=== PATIENT | female | born 1960 | race Caucasian/White ===

== ENCOUNTER 2016-10-14 09:05 | Outpatient (CLI) | payer MEDICAID ==
[~2016-10-14] VITALS: Ht 165.1 cm; Wt 62.3 kg
--- NOTE | ~2016-10-14 | OP ---
PATIENT NAME: LALI LIU MEDICAL RECORD: [id number] :64 LOCATION:D.CAT ADMISSION DATE: SURGEON: LUCÍA MCALLISTER MD DATE OF OPERATION: 10/14/2016 PROCEDURES: 1. Left heart catheterization. 2. Selective coronary angiography. 3. SORIA angiography. 4. Vein graft angiography. INDICATION: Angina and coronary artery disease. PROCEDURE IN DETAIL: After informed consent was obtained and after detailed explanation of risks, benefits as well as alternative therapies, the patient elected to proceed with angiogram and angioplasty. The right femoral area was prepped and draped in normal sterile fashion. The right femoral artery was cannulated via modified Seldinger technique with placement of 6-Slovenian sheath. All catheters exchanged through this sheath. FINDINGS: The left ventriculogram was performed in standard 30-degree NAVARRO view, reveals good cardiac wall motion throughout all segments. Overall ejection fraction estimated at 60%. SELECTIVE CORONARY ANGIOGRAPHY: 1. Left main has 90% stenosis. 2. The LAD is totally occluded. 3. Left circumflex is totally occluded. 4. Right coronary is totally occluded. 5. Vein graft to the right coronary is totally occluded. 6. Vein graft to the circumflex is totally occluded. 7. SORIA to the LAD is the only vessel patent. It fills the entire left system and collaterals to the right. OVERALL IMPRESSION: Wide patency of the SORIA to the LAD only. No other vessels are patent. TRANSINT:[id number] Voice Confirmation ID: [id number] DOCUMENT ID: [id number] LUCÍA MCALLISTER MD CC: [id number] DICTATION DATE: 10/14/16 1441 ENGINEERING WRITER: 10/14/16 2256 [facility] CLI 10/14/16 [place] [id number]
--- NOTE | ~2016-10-14 | HEMODYNAMI ---
PATIENT:LALI LIU MEDICAL RECORD: [id number] : 64 LOCATION:[facility] ADMISSION DATE: 10/14/16 Generatedon:10/14/201614:46 Patient name: LALI LIU Patient #: [id number] SSN: : 1960 Date of study: 10/14/2016 Page: Of Hemodynamic Procedure Report Patient Data Patient Demographics Procedure consent was obtained First Name: LALI Gender: Female Last Name: ALEXA : 1960 Patient #: [id number] Age: 56 year(s) Race: Additional ID: [id number] Contact details Address: [address] [place] [address] COURT State: [place] City: [facility] Zip code: [address] Past Medical History Allergies Allergen Reaction Date Comments Reported Penicillins 08/28/2015 Other allergy 08/28/2015 NAPROXEN Penicillins 10/14/2016 Other allergy 10/14/2016 NAPROXEN Admission Admission Data Admission Date: 10/14/2016 Admission Time: 9:05 Admit Source: Other Lab Results Lab Result Date: 10/14/2016 Lab Result Time: 0:00 Biochemistry Name Units Result Min Max BUN mg/dl 16 --(---*)-- 7 18 Creatinine mg/dl 1.1 --(--*-)-- 0.6 1.3 CBC Name Units Result Min Max Hemoglobin g/dl 13.6 --(*---)-- 13.5 17.5 Procedure Procedure Types Cath Procedure Diagnostic Procedure LHC LHC w/Coronaries w/Grafts Procedure Description Procedure Date Procedure Date: 10/14/2016 Procedure Start Time: 14:27 Procedure End Time: 14:44 Procedure Staff Name Function Alpesh Washington MD Performing Physician Suzi Howard RT Scrub Randal Escobedo RN Nurse Ernst Olson RT Monitor Procedure Data Cath Procedure Fluoroscopy Diagnostic fluoroscopy Total fluoroscopy Time: 1.7 time: 1.7 min min Diagnostic fluoroscopy Total fluoroscopy dose: dose: 77.02 mGy 77.02 mGy Contrast Material Contrast Material Type Amount (ml) Isovue 300 58 Entry Location Entry Primary Successful Side Size Upsize Upsize Entry Closure Succes sful Closure Location (Fr) 1 (Fr) 2 (Fr) Remarks Device Remarks Femoral Right 5 Fr Vascade artery Closure System Estimated blood loss: 10 ml Diagnostic catheters Device Type Used For End Catheter Placement Cordis 5Fr Pigtail Procedure Catheter (MP) Cordis 5Fr JL 4.0 Procedure Catheter (MP) Cordis 5Fr 3DRC Catheter Procedure (MP) Procedure Medications Medication Administration Route Dosage Oxygen NC 2 l/min Heparin Flush Bag added to field 2 bags (1000units/500ml NS) 0.9% NaCl I.V. 100 ml/hr Fentanyl I.V. 50 mcg Versed I.V. 1 mg Fentanyl I.V. 50 mcg Versed I.V. 1 mg Fentanyl I.V. 50 mcg Versed I.V. 1 mg Fentanyl I.V. 50 mcg Versed I.V. 1 mg Hemodynamics Rest HGB: 13.6 (g/dl) Heart Rate: 63 (bpm) Pressure Samples Time Site Value (mmHg) Purpose Heart Use Rate(bpm) 14:30 LV 91/13,23 Snapshot 64 Snapshots Pre Cath Intra NCS Post Cath Vital Signs Time Heart Resp SPO2 NIBP (mmHg) Rhythm Pain Sedation Rate (ipm) (%) Status Level (bpm) 13:50:37 64 18 99 148/89(128) NSR 0 (11) 10(A) , No pain 13:54:49 62 16 98 134/89(106) NSR 0 (11) 10(A) , No pain 13:59:03 62 19 96 127/80(109) NSR 0 (11) 10(A) , No pain 14:03:07 55 17 95 115/76(103) NSR 0 (11) 10(A) , No pain 14:07:23 60 17 89 114/57(75) NSR 0 (11) 10(A) , No pain 14:11:37 59 17 97 99/65(84) NSR 0 (11) 10(A) , No pain 14:15:42 60 18 97 101/67(84) NSR 0 (11) 10(A) , No pain 14:19:52 60 17 98 100/57(82) NSR 0 (11) 9(A) , No pain 14:24:02 60 17 97 90/56(75) NSR 0 (11) 9(A) , No pain 14:28:06 61 18 97 97/61(78) NSR 0 (11) 9(A) , No pain 14:32:16 65 20 96 88/55(69) NSR 0 (11) 9(A) , No pain 14:36:22 71 17 96 88/54(68) NSR 0 (11) 9(A) , No pain 14:40:27 64 18 96 87/55(69) NSR 0 (11) 9(A) , No pain 14:44:31 65 16 96 87/60(71) NSR 0 (11) 9(A) , No pain Medications Time Medication Route Dose Verified Delivered Reason Notes Effec tiveness by by 14:05:53 Oxygen NC 2 Randal Randal Per l/min Gregg Escobedo RN physician RN 14:06:05 Heparin Flush added 2 Randal Randal used for Bag to bags Gregg Escobedo conduit worker (1000units/500ml field RN NS) 14:06:23 0.9% NaCl I.V. 100 Randal Randal Per ml/hr Gregg Escobedo RN physician RN 14:18:42 Fentanyl I.V. 50 Randal Randal for joseph Escobedo RN sedation RN 14:18:50 Versed I.V. 1 mg Randal Randal for Gregg Escobedo RN sedation RN 14:22:02 Fentanyl I.V. 50 Randal Randal for [facility] Gregg Escobedo RN sedation RN 14:22:46 Versed I.V. 1 mg Randal Randal for Gregg Escobedo RN sedation RN 14:29:35 Fentanyl I.V. 50 Randal Randal for [facility] Gregg Escobedo RN sedation RN 14:29:38 Versed I.V. 1 mg Randal Randal for Gregg Escobedo RN sedation RN 14:30:19 Fentanyl I.V. 50 Randal Randal for [facility] Gregg Escobedo RN sedation RN 14:30:22 Versed I.V. 1 mg Randal Randal for Gregg Escobedo RN sedation strap setter Log Time Note 13:35:06 Informed consent obtained and on chart 13:35:11 Diagnostic Cath Status : Elective 13:35:47 Admit Source: Other 13:35:52 Ernst Olson RT(R) (CV) sent for patient. Start room use. 13:42:15 Time tracking: Regular hours 13:42:21 Plan of Care:Hemodynamics will remain stable., Cardiac rhythm will remain stable., Comfort level will be maintained., Respiratory function will remain adequate., Patient/ family verbilizes understanding of procedure., Procedure tolerated without complication., Recovers from procedure without complications.. 13:49:28 Vital chart was started 13:49:35 Patient received from Pre/Post Procedure Room to CCL 3 Alert and oriented. Tansferred to table in Supine position. 13:49:39 Warm blankets applied, and rach hugger turned on for patient comfort. 13:49:39 Correct patient and procedure confirmed by team. 13:49:40 ECG and BP/O2 sat monitors applied to patient. 13:49:42 Baseline sample Acquired. 13:49:52 Rhythm: sinus rhythm 13:49:54 Full Disclosure recording started 13:50:35 H&P Date Dictated: 10/11/2016 Within 30 days and on chart., H&P Addendum completed by physician on day of procedure. (MUST COMPLETE FOR ALL OUTPATIENTS). 13:50:37 Pre-procedure instructions explained to patient. 13:50:37 Pre-op teaching completed and patient verbalized understanding. 13:50:45 Family in waiting room. 13:50:49 Patient NPO since Midnight. 13:51:02 Patient allergic to Penicillins 13:51:16 Patient allergic to Other allergyNAPROXEN 13:51:21 Is the patient allergic to Iodine/contrast media? No. 13:51:24 Is patient on blood thinner?Yes 13:51:27 ACC The patient was administered the following blood thiners within the last 24 hours: ACCPlavix 13:51:29 Patient diabetic? No. 13:51:33 Patient not . Patient is over age 55. 13:51:35 ----Pre-sedation anethsthesia assessment.---- 13:51:37 Previous problem with sedation/anesthesia? No ? 13:51:39 Snore? Yes 13:51:41 Sleep apnea? No 13:51:42 Deviated septum? No 13:51:43 Opens mouth fully? Yes 13:51:44 Sticks out tongue? Yes 13:52:08 Airway obstruction? Yes COPD 13:52:23 Dentures? Yes IN TIGHT UPPER AND LOWER 13:53:03 Pre procedure: right dorsailis pedis pulse 2+ Normal; easily identifiable; not easily obliterated 13:53:09 Patient pain scale 0/10 ?. 13:53:18 IV patent on arrival in left wrist with 0.9% NaCl at [facility]. 13:53:53 Lab Result : BUN 16 mg/dl 13:53:53 Lab Result : Creatinine 1.1 mg/dl 13:53:53 Lab Result : Hemoglobin 13.6 g/dl 13:53:56 Lab results completed and on chart. 13:54:00 Right groin area was prepped with chlora-prep and draped in sterile fashion 13:54:02 Alarms reviewed by R. N. 13:54:02 Sharps counted by scrub and verified by R.N. 13:54:54 Use device set Femoral Dx 13:54:55 Acist Syringe opened to sterile field. 13:54:56 Bag Decanter opened to sterile field. 13:54:56 Medline Cath Pack opened to sterile field. 13:54:57 Terumo 5Fr [place] Sheath opened to sterile field. 13:54:58 St Tristen 260cm J .035 wire opened to sterile field. 13:55:01 Acist Hand Control opened to sterile field. 13:55:02 Acist Manifold opened to sterile field. 13:55:02 Diagnostic Infinity 5Fr Multipack catheter opened to sterile field. 13:55:03 Tegaderm 4 x 4 opened to sterile field. 14:05:53 Oxygen 2 l/min NC was administered by Randal Escobedo RN; Per physician; 14:06:05 Heparin Flush Bag (1000units/500ml NS) 2 bags added to field was administered by Randal Escobedo RN; used for procedure; 14::23 0.9% NaCl 100 ml/hr I.V. was administered by Randal Escobedo RN; Per physician; 14:07:09 Zero performed for pressure channel P1 14:16:22 Physician arrived 14:16:23 --------ALL STOP TIME OUT------ 14:16:24 Final Timeout: patient, procedure, and site verified with staff and physician. All members of the team are in agreement. 14:16:27 Right groin site verified by team. 14:16:34 Physical assessment completed. ASA score P 2 - A patient with mild systemic disease as per Alpesh Washington MD. 14:16:39 Sedation plan: IV Moderate Sedation Versed, Fentanyl 14:18:42 Fentanyl 50 mcg I.V. was administered by Randal Escobedo RN; for sedation; 14:18:50 Versed 1 mg I.V. was administered by Randal Escobedo RN; for sedation; 14:22:02 Fentanyl 50 mcg I.V. was administered by Randal Escobedo RN; for sedation; 14:22:46 Versed 1 mg I.V. was administered by Randal Escobedo RN; for sedation; 14:27:37 Procedure started. 14:27:41 Local anesthetic to right femoral artery with Lidocaine 2% by Alpesh Washington MD.INITIAL ACCESS ONLY 14:28:44 A 5 Fr sheath was inserted into the Right Femoral artery 14:29:35 Fentanyl 50 mcg I.V. was administered by Randal Escobedo RN; for sedation; 14:29:38 Versed 1 mg I.V. was administered by Randal Escobedo RN; for sedation; 14:29:52 A Cordis 5Fr Pigtail Catheter (MP) was advanced over the wire and used for Procedure. 14:30:19 Fentanyl 50 mcg I.V. was administered by Randal Escobedo RN; for sedation; 14:30:22 Versed 1 mg I.V. was administered by Randal Escobedo RN; for sedation; 14:30:24 LV hemodynamics recorded. 14:30:26 LV gram done using NAVARRO 14:30:31 EF : 50 % 14:30:33 Catheter removed. 14:30:45 A Cordis 5Fr JL 4.0 Catheter (MP) was advanced over the wire and used for Procedure. 14:31:36 LCA angiography performed. 14:31:38 Catheter removed. 14:33:00 A Cordis 5Fr 3DRC Catheter (MP) was advanced over the wire and used for Procedure. 14:33:42 RCA angiography performed. 14:33:46 SORIA to LAD angiography performed. 14:36:41 Catheter removed. 14:36:56 Vascade 5Fr Closure Device opened to sterile field. 14:38:17 Sheath removed intact; hemostasis achieved with Vascade Closure System to the Right Femoral artery. 14:38:20 Procedure ended.(Physican Out) 14:38:29 Fluoroscopy time 01.70 minutes. 14:38:42 Flurop Dose total: 77.02 14:38:42 Fluoroscopy dose: 77.02 mGy 14:38:50 Contrast amount:Isovue 300 58ml. 14:38:54 Sharps counted by scrub and verified by R.N. 14:40:42 Post-procedure physical assessment completed. ASA score P 2 - A patient with mild systemic disease as per Alpesh Washington MD. 14:40:48 Post procedure rhythm: sinus rhythm 14:40:53 Estimated blood loss: 10 ml 14:41:22 Post procedure instruction explained to patient.Patient verbalizes understanding. 14:41:24 Patient needs reinforcement of post procedure teaching. 14:41:27 Procedure and supply charges have been captured, reviewed, submitted and are correct. 14:44:31 Insertion/operative site no bleeding no hematoma. 14:44:34 Post-op/insertion site Right Femoral artery dressed using a 4 x 4 and Tegaderm. 14:44:38 Post right femoral artery:stable 14:44:41 Post Procedure Pulses reassessed and unchanged 14:44:49 Vital chart was stopped 14:44:50 See physician's report for complete and final results. 14:44:52 Report given to Pre/Post Procedure Room. 14:44:55 Patient transfered to Pre/Post Procedure Room with Stretcher. 14:44:58 Procedure ended. 14:44:58 Full Disclosure recording stopped 14:45:01 End room use (Document Last) Device Usage Item Name Manufacture Quantity Catalog Number Hospital Part Current Minima l Lot# / Charge Number Stock Stock Serial# Code Acist Acist 1 [id number] [id number] [id number] 20 Syringe [employer] Inc Bag Microtek 1 2002S [id number] 00724 138038 5 Decmuzu tv [employer] Medline Cardinal 1 [id number] 26397 989069 5 Cath Pack Health Terumo 5Fr Terumo 1 [id number] 364692 344571 [address] Tr[address] St Tristen 1 028252 915484 510154 640949 30 260cm J .035 wire Acist Hand Acist 1 29053 988797 847393 849122 5 Control Medical Systems Inc Acist Acist 1 03089 318631 832905 064376 5 Manifold Medical Systems Inc Diagnostic Cardinal 1 [id number] 248608 88438 473000 30 Infinity Health 5Fr Multipack catheter Tegaderm 4 3M 1 1626W 319747 416994 772731 5 x 4 Cordis 5Fr Cardinal 1 [id number] 5 Pigtail Health Catheter (MP) Cordis 5Fr Cardinal 1 [id number] 5 JL 4.0 Health Catheter (MP) Cordis 5Fr Cardinal 1 074143 5 3DRC Health Catheter (MP) Vascade Cardiva 1 [id number] 075944 57515 408671 10 5Fr Medical, Closure Inc. Device Signature Audit [place] Stage Time Signature Unsigned Intra-Procedure 10/14/2016 Ernst Olson 2:46:23 PM RT(R) (CV) Signatures Monitor : Ernst Olson RT Signature : Date : Time : [place] [id number] [facility] [place] [place] [address]
[~2016-10-14 09:05] MED LIST: ASPIRIN325 MG PO; ATIVAN0.5 MG PO; BAYER CHEWABLE81 MG PO; BENICAR40 MG PO; BYSTOLIC10 MG PO; CELEXA20 MG PO; CRESTOR5 MG PO; CYCLOBENZAPRINE10 MG PO; EFFIENT10 MG PO; ELAVIL25 MG PO; FIORICET TABLET1 TAB PO; FISH OIL 1,0001 CA1 PO; IMDUR30 MG PO; IMITREX50 MG PO; MELOXICAM PO; MEVACOR20 MG PO; NEURONTIN 300300 MG PO; NITROSTAT0.4 MG SL; OXYCONTIN10 MG PO; PLAVIX75 MG PO; PRINIVIL20 MG PO; PROVENTIL HFA6.7 GM INH; RELPAX20 MG PO; SPIRIVA18 MCG INH; TENORMIN50 MG PO; ULTRAM50 MG PO; ZOCOR20 MG PO
[2016-10-14] MEDS ORDERED: FUROSEMIDE20 MG PO (10:59)
[2016-10-14] MEDS ORDERED: VITAMIN B-121000 MCG PO (11:00)
[2016-10-14] MEDS ORDERED: SYMBICORT 16010.2 GM INH (11:01)
[2016-10-14] MEDS ORDERED: CYCLOBENZAPRINE10 MG PO (11:01)
[2016-10-14] MEDS ORDERED: LEXAPRO20 MG PO (11:02)
[2016-10-14] MEDS ORDERED: BUTALB-APAP-CA1 EACH PO (11:03)
[2016-10-14 11:04] VITALS: BP 129/84; Ht 165.1 cm; Wt 62.3 kg
[2016-10-14 11:15] LABS: BASOPHILS 0.4 % (0-2); EOSINOPHILS 2.6 % (0-7); HEMATOCRIT 40.6 % (36.0-48.0); HEMOGLOBIN 13.6 g/dL (12-16); LYMPHOCYTES 22.3 % (15-50); MCH 31.3 pg (26.0-34.0); MCHC 33.5 g/dL (31.0-37.0); MCV 93.5 fL (80.0-100.0); MEAN PLATELET VOLUME 10.1 fL (7.4-10.4); NEUTROPHILS 68.7 % (40-80); PLATELET COUNT 236 10x3/uL (130-400); RBC 4.34 10x6/uL (4.00-5.40)
[2016-10-14 11:24] LABS: ANION GAP 12.4 mmol/L (8-16); CALCIUM 9.3 mg/dL (8.5-10.1); CARBON DIOXIDE 26.7 mmol/L (21.0-32.0); CREATININE - SERUM 1.1 mg/dL (0.6-1.3); POTASSIUM - SERUM 4.1 mmol/L (3.5-5.1)
--- NOTE | 2016-10-14 15:49 | NUR ---
1500 RECEIVED PT FROM [facility], PT IS DROWSY, DENIES ANY C/O CHEST PAIN OR NAUSEA. DRESSING TO RIGHT GROIN IS CDI, NO BLEEDING OR HEMATOMA NOTED. PEDAL PULSES ARE PALPABLE, CAP REFILL IS BRISK. TOES WARM TO TOUCH. PT INSTRUCTED TO KEEP HEAD TO PILLOW AND RIGHT LEG STRAIGHT AND PT VERBALIZED UNDERSTANDING. DAUGHTER AT BEDSIDE. CALL LIGHT IS IN REACH. 1515 DRESSING RIGHT GROIN IS CDI, AREA SOFT AND NONTENDER. PT DENIES ANY C/O.
--- NOTE | 2016-10-14 15:56 | NUR ---
1545 PT HAS JIN SANDWICH WITH NO C/O. DRESSING REMAINS CDI, AREA IS SOFT AND NONTENDER. CAP REFILL IS BRISK, PEDAL PULSES PALPABLE.
--- NOTE | 2016-10-14 16:58 | NUR ---
1630 PT RESTING QUIETLY WITH EYES CLOSED, DRESSING TO RIGHT GROIN IS CDI, NO BLEEDING OR HEMATOMA NOTED. AREA IS SOFT AND NON-TENDER, CAP REFILL IS BRISK. 1645 SAT PT AT 45 DEGREE ANGLE, DRESSING TO GROIN REMAINS CDI, 1700 IV HAS BEEN DC'D WITH CATH INTACT. REVIEWED DC INSTRUCTIONS WITH PT WHO VERBALIZES UNDERSTANDING. PT DRESSING FOR DC TO HOME. DAUGHTER AT BEDSIDE.
--- NOTE | 2016-10-14 17:16 | NUR ---
1610 PT HAS VOIDED QS. DRESSING TO CATH SITE REMAINS STABLE WITH NO BLEEDING OR HEMATOMA NOTED. PT ESCORTED TO PRIVATE AUTO VIA WC BY NURSE WTIH DAUGHTER DRIVING HER HOME.
== END 2016-10-14 17:10 | disposition home or self-care (01) ==
LOC: D.CATH 09:05
PROVIDERS: Internal Medicine Interventional Cardiology
DX: I25.119 Atherosclerotic heart disease of native coronary artery with unspecified angina pectoris (principal); I25.719 Atherosclerosis of autologous vein coronary artery bypass graft(s) with unspecified angina pectoris; Z01.812 Encounter for preprocedural laboratory examination

== ENCOUNTER → 2017-06-23 07:22 | Outpatient (CLI) | payer MEDICAID ==
[2016-10-14 11:04] VITALS: BMI 22.8
--- NOTE | ~2017-06-23 | ST ---
PATIENT:LALI LIU MEDICAL RECORD: [id number] SEX: F [place] ORDER #: ADMISSION DATE: 06/23/17 AGE OF PATIENT: 57 REFERRING PHYSICIAN: INTERPRETING PHYSICIAN: GERALD ZACARIAS MD DATE OF SERVICE: 06/23/2017 PROCEDURE: Lexiscan directed nuclear stress test. PROCEDURE IN DETAIL: The patient was brought into the nuclear lab, placed in supine position on the nuclear table. The patient had a standard sestamibi injection and was asymptomatic except at the end of the injection where she experienced 4/6 chest pressure. She had ST segment changes at baseline that became more accentuated after the sestamibi was injected. The nuclear imaging rest and stress were done on the same day. At rest, 12.2 mCi of sestamibi was injected at 0807 hours and at stress 30.2 mCi of sestamibi was injected at 9:40 a.m. SPECT imaging showed that the inferior lateral border had a partially reversible, moderate intensity, moderate distribution defect. The Gated imaging showed ejection fraction of 46% with mild inferolateral hypokinesis. CONCLUSION: This is an abnormal stress test with areas of partial reversibility inferolaterally associated with wall motion abnormality in the same area. Depending on clinical situation angiography may be helpful for further delineation. TRANSINT:[id number] Voice Confirmation ID: [id number] DOCUMENT ID: [id number] GERALD ZACARIAS MD at 1214 CC: [id number] DICTATION DATE: 06/23/172047 ASSOCIATE PROFESSOR OF PATHOLOGY: 06/24/17 0114 DEP CLI 06/23/17 [place] [address] [place] [address]
[~2017-06-23 07:22] MED LIST changes: +BUTALB-APAP-CA1 EACH PO; +FUROSEMIDE20 MG PO; +LEXAPRO20 MG PO; +LYRICA50 MG PO; +SYMBICORT 16010.2 GM INH; +TOPROL XL50 MG PO; +VITAMIN B-121000 MCG PO
== END | disposition home or self-care (01) ==
LOC: D.NM 07:22
DX: I20.9 Angina pectoris, unspecified (principal); I25.10 Atherosclerotic heart disease of native coronary artery without angina pectoris

== ENCOUNTER 2017-06-30 08:00 | Outpatient (CLI) | payer MEDICAID ==
[~2017-06-30] VITALS: Ht 165.1 cm; Wt 62.3 kg
--- NOTE | ~2017-06-30 | OP ---
PATIENT NAME: LALI LIU MEDICAL RECORD: [id number] :64 LOCATION:D.CAT ADMISSION DATE: SURGEON: LUCÍA MCALLISTER MD DATE OF OPERATION: 06/30/2017 PROCEDURES: 1. Left heart catheterization. 2. Selective coronary angiography. 3. Vein graft angiography. 4. SORIA angiography. 5. Left ventriculogram. INDICATION: Angina and coronary artery disease. PROCEDURE IN DETAIL: After informed consent was obtained and after a detailed explanation of the risks, benefits as well as alternative therapies, the patient elected to proceed with angiogram. The right femoral area was prepped and draped in normal sterile fashion. Right femoral artery was cannulated via modified Seldinger technique with placement of 5-Emirati sheath. All catheters exchanged through this sheath. FINDINGS: Left ventriculogram was performed in standard 30-degree NAVARRO view, reveals inferoapical hypokinesis, ejection fraction in the 40% range. SELECTIVE CORONARY ANGIOGRAPHY: 1. Left main is closed. 2. Right coronary artery is closed. 3. Vein graft to the circumflex is closed. 4. Right coronary artery does not appear to be grafted. 5. SORIA is the only patent vessel. This fills the entire left and right system. The left and right arteries are small, diffusely diseased, but patent with no flow-limiting stenosis. OVERALL IMPRESSION: Total occlusion of all vessels, except the SORIA to the LAD filling the entire coronary system directly and via collaterals. No option for transcatheter revascularization. TRANSINT:[id number] Voice Confirmation ID: [id number] DOCUMENT ID: [id number] LUCÍA MCALLISTER MD at 1153 CC: [id number] DICTATION DATE: 06/30/17 1044 DISH PERSON: 06/30/17 1059 [facility] [address] [place] [address]
--- NOTE | ~2017-06-30 | HEMODYNAMI ---
PATIENT:LALI LIU MEDICAL RECORD: [id number] : 64 LOCATION:DED ADMISSION DATE: 06/30/17 Generatedon:06/30/201710:44 Patient name: LALI LIU Patient #: [id number] SSN: : 1960 Date of study: 06/30/2017 Page: Of Hemodynamic Procedure Report Patient Data Patient Demographics Procedure consent was obtained First Name: LALI Gender: Female Last Name: ALEXA : 1960 Patient #: [id number] Age: 57 year(s) Race: Additional ID: [id number] Contact details Address: [address] [place] [address] COURT State: [place] City: [facility] Zip code: [address] Past Medical History Allergies Allergen Reaction Date Comments Reported Penicillins 08/28/2015 Other allergy 08/28/2015 NAPROXEN Penicillins 10/14/2016 Other allergy 10/14/2016 NAPROXEN Other allergy 06/30/2017 PCN, Naproxen Admission Admission Data Admission Date: 06/30/2017 Admission Time: 8:00 Admit Source: Other Lab Results Lab Result Date: 06/30/2017 Lab Result Time: 8:40 Biochemistry Name Units Result Min Max BUN mg/dl 10 --(-*--)-- 7 18 Creatinine mg/dl 1 --(--*-)-- 0.6 1.3 CBC Name Units Result Min Max Hematocrit % 39.7 -*(----)-- 42 54 Hemoglobin g/dl 13.2 -*(----)-- 13.5 17.5 Procedure Procedure Types Cath Procedure Diagnostic Procedure LHC LHC w/Coronaries w/Grafts Procedure Description Procedure Date Procedure Date: 06/30/2017 Procedure Start Time: 10:33 Procedure End Time: 10:40 Procedure Staff Name Function Alpesh Washington MD Performing Physician Bharat Odom RT Monitor Miles Villasenor RT Scrub Mary Mchugh RN Nurse Procedure Data Cath Procedure Fluoroscopy Diagnostic fluoroscopy Total fluoroscopy Time: 1.1 time: 1.1 min min Diagnostic fluoroscopy Total fluoroscopy dose: dose: 36.67 mGy 36.67 mGy Contrast Material Contrast Material Type Amount (ml) Isovue 300 34 Entry Location Entry Primary Successful Side Size Upsize Upsize Entry Closure Succes sful Closure Location (Fr) 1 (Fr) 2 (Fr) Remarks Device Remarks Femoral Right 5 Fr Exoseal artery Estimated blood loss: 5 ml Diagnostic catheters Device Type Used For End Catheter Placement MULTIPACK Pigtail 5 Fr Procedure catheter MULTIPACK JL 4.0 5Fr Procedure catheter MULTIPACK 3DRC 5Fr Procedure catheter Procedure Complications No complications Procedure Medications Medication Administration Route Dosage Oxygen NC 2 l/min Heparin Flush Bag added to field 2 bags (1000units/500ml NS) Lidocaine 2% added to field 20 Fentanyl I.V. 50 mcg Versed I.V. 1 mg Fentanyl I.V. 50 mcg Versed I.V. 1 mg Fentanyl I.V. 50 mcg Versed I.V. 1 mg Hemodynamics Rest HGB: 13.2 (g/dl) Heart Rate: 71 (bpm) Snapshots Pre Cath Intra NCS Post Cath Vital Signs Time Heart Resp SPO2 etCO2 NIBP (mmHg) Rhythm Pain Sedation Rate (ipm) (%) (mmHg) Status Level (bpm) 9:49:34 72 17 100 33.7 127/80(99) NSR 0 (11) 10(A) , No pain 9:53:52 68 18 100 31.4 115/77(97) NSR 0 (11) 10(A) , No pain 9:58:02 69 16 99 31.4 121/83(100) NSR 0 (11) 10(A) , No pain 10:02:18 65 20 98 33.6 120/77(88) NSR 0 (11) 10(A) , No pain 10:06:32 67 18 96 28.4 106/71(86) NSR 0 (11) 10(A) , No pain 10:10:44 67 25 98 32.9 114/67(88) NSR 0 (11) 10(A) , No pain 10:14:56 65 17 96 10.4 98/63(80) NSR 0 (11) 10(A) , No pain 10:19:05 67 18 96 11.2 101/65(85) NSR 0 (11) 10(A) , No pain 10:23:17 67 16 95 0 97/62(79) NSR 0 (11) 10(A) , No pain 10:27:27 66 21 94 0 96/65(83) NSR 0 (11) 10(A) , No pain 10:31:39 69 20 95 0 101/55(80) NSR 0 (11) 10(A) , No pain 10:35:51 68 22 96 20.2 103/65(85) NSR 0 (11) 9(A) , No pain 10:40:01 66 21 93 23.1 98/65(77) NSR 0 (11) 9(A) , No pain Medications Time Medication Route Dose Verified Delivered Reason Notes Effec tiveness by by 9:47:08 Oxygen NC 2 Mary Mary used for l/min Mchugh Mchugh varnishing unit operator RN 9:47:14 Heparin Flush added 2 Mary Mary used for Bag to bags Mchugh Mchugh procedure (1000units/500ml field RN RN NS) 9:47:21 Lidocaine 2% added 20ml Mary Mary used for to vial Mchugh Mchugh procedure field RN RN 10:32:10 Fentanyl I.V. 50 Mary Mary for mcg Mchugh Mchugh sedation RN RN 10:32:13 Versed I.V. 1 mg Mary Mary for Mchugh Mchugh sedation RN RN 10:32:55 Fentanyl I.V. 50 Mary Mary for mcg Mchugh Mchugh sedation RN RN 10:33:06 Versed I.V. 1 mg Mary Mary for Mchugh Mchugh sedation RN RN 10:35:14 Fentanyl I.V. 50 Mary Mary for mcg Mchugh Mchugh sedation RN RN 10:35:19 Versed I.V. 1 mg Mary Mary for Mchugh Mchugh sedation RN warehouse manager Log Time Note 9:28:35 Procedure type changed to Cath procedure, Diagnostic procedure, LHC, LHC w/Coronaries w/Grafts 9:29:02 Admit Source: Other 9:29:03 Diagnostic Cath status Elective 9:29:06 Miles Villasenor RT(R) sent for patient. Start room use. 9:29:07 Time tracking: Regular hours 9:29:10 Plan of Care:Hemodynamics will remain stable., Cardiac rhythm will remain stable., Comfort level will be maintained., Respiratory function will remain adequate., Patient/ family verbilizes understanding of procedure., Procedure tolerated without complication., Recovers from procedure without complications.. 9:29:19 H&P Date Dictated: 06/13/2017 Within 30 days and on chart., H&P Addendum completed by physician on day of procedure. (MUST COMPLETE FOR ALL OUTPATIENTS). 9:36:22 Patient received from Pre/Post Procedure Room to CCL 3 Alert and oriented. Tansferred to table in Supine position. 9:36:23 Warm blankets applied, and rach hugger turned on for patient comfort. 9:36:23 Correct patient and procedure confirmed by team. 9:36:24 Signed procedure consent form obtained from patient. 9:36:25 ECG and BP/O2 sat monitors applied to patient. 9:36:26 Pre-procedure instructions explained to patient. 9:36:26 Pre-op teaching completed and patient verbalized understanding. 9:36:27 Family in waiting room. 9:36:29 Patient NPO since Midnight. 9:36:43 Patient allergic to Other allergyPCN, Naproxen 9:47:08 Oxygen 2 l/min NC was administered by Mary Mchugh RN; used for procedure; 9:47:14 Heparin Flush Bag (1000units/500ml NS) 2 bags added to field was administered by Mary Mchugh RN; used for procedure; 9:47:21 Lidocaine 2% 20ml vial added to field was administered by Mary Mchugh RN; used for procedure; 9:48:16 Vital chart was started 9:48:17 Baseline sample Acquired. 9:48:20 Rhythm: sinus rhythm 9:48:22 Full Disclosure recording started 9:48:24 Is the patient allergic to Iodine/contrast media? No. 9:48:25 Is patient on blood thinner?Yes 9:48:28 ACC The patient was administered the following blood thiners within the last 24 hours: ACCPlavix 9:48:29 Patient diabetic? No. 9:48:32 Previous problem with sedation/anesthesia? No ? 9:48:33 Snore? No 9:48:34 Sleep apnea? No 9:48:34 Deviated septum? No 9:48:35 Opens mouth fully? Yes 9:48:36 Sticks out tongue? Yes 9:48:40 Airway obstruction? Yes COPD 9:48:44 Dentures? Yes IN TIGHT 9:49:12 Pre procedure: right dorsailis pedis pulse 2+ Normal; easily identifiable; not easily obliterated 9:49:16 Patient pain scale 0/10 ?. 9:49:22 IV patent on arrival in left wrist with 0.9% NaCl at [facility]. 9:51:04 Lab Result : Creatinine 1 mg/dl 9:51:04 Lab Result : BUN 10 mg/dl 9:51:04 Lab Result : Hemoglobin 13.2 g/dl 9:51:04 Lab Result : Hematocrit 39.7 % 9:51:06 Lab results completed and on chart. 9:51:08 Right groin area was prepped with chlora-prep and draped in sterile fashion 9:51:09 Alarms reviewed by R. N. 9:51:10 Sharps counted by scrub and verified by R.N. 9:51:12 Use device set Femoral Dx 9:51:13 ACIST Syringe (53850) opened to sterile field. 9:51:14 Bag Decanter (2002S) opened to sterile field. 9:51:15 Medline Cath Pack ([id number]) opened to sterile field. 9:51:15 ACIST Hand Control (58577) opened to sterile field. 9:51:16 ACIST Manifold (06303) opened to sterile field. 9:51:20 Tegaderm 4 x 4 (1626W) opened to sterile field. 9:51:22 SHEATH 5FR Compton (TBN671) opened to sterile field. 9:51:22 DIAGNOSTIC WIRE .035 260cm J wire (700223) opened to sterile field. 9:51:23 DIAGNOSTIC Multipack 5Fr catheter set (IX6331) opened to sterile field. 9:51:25 PERCUTANEOUS ENTRY 19GA needle opened to sterile field. 10:08:44 Zero performed for pressure channel P1 10:11:54 Zero performed for pressure channel P1 10:11:59 Zero performed for pressure channel P1 10:31:21 Physician arrived 10:31:21 --------ALL STOP TIME OUT------ 10:31:21 Final Timeout: patient, procedure, and site verified with staff and physician. All members of the team are in agreement. 10:31:23 Right groin site verified by team. 10:31:26 Physical assessment completed. ASA score P 2 - A patient with mild systemic disease as per Alpesh Washington MD. 10:31:30 Sedation plan: IV Moderate Sedation Medication:Versed, Fentanyl 10:32:10 Fentanyl 50 mcg I.V. was administered by Mary Mchugh RN; for sedation; 10:32:13 Versed 1 mg I.V. was administered by Mary Mchugh RN; for sedation; 10:32:55 Fentanyl 50 mcg I.V. was administered by Mary Mchugh RN; for sedation; 10:33:06 Versed 1 mg I.V. was administered by Mary Mchugh RN; for sedation; 10:33:21 Procedure started. 10:33:26 Local anesthetic to right femoral artery with Lidocaine 2% by Alpesh Washington MD.INITIAL ACCESS ONLY 10:34:09 A 5 Fr sheath was inserted into the Right Femoral artery 10:35:14 Fentanyl 50 mcg I.V. was administered by Mary Mchugh RN; for sedation; 10:35:19 Versed 1 mg I.V. was administered by Mary Mchugh RN; for sedation; 10:35:44 A MULTIPACK Pigtail 5 Fr catheter was advanced over the wire and used for Procedure. 10:35:50 LV gram done using NAVARRO 10:35:53 Injector settings: Ml/sec: 10, Volume: 20, 10:36:02 EF : 40 % 10:36:19 Catheter exchanged over wire. 10:36:24 A MULTIPACK JL 4.0 5Fr catheter was advanced over the wire and used for Procedure. 10:36:55 Catheter exchanged over wire. 10:37:45 LCA angiography performed. 10:37:48 A MULTIPACK 3DRC 5Fr catheter was advanced over the wire and used for Procedure. 10:37:53 SORIA to LAD angiography performed. 10:38:18 EXOSEAL 5Fr (EX500) opened to sterile field. 10:38:26 Sheath removed intact; hemostasis achieved with Exoseal to the Right Femoral artery. 10:38:27 Procedure ended.(Physican Out) 10:38:53 Fluoroscopy time 01.10 minutes. 10:38:59 Fluoroscopy dose: 36.67 mGy 10:38:59 Flurop Dose total: 36.67 10:39:03 Contrast amount:Isovue 300 34ml. 10:39:04 Sharps counted by scrub and verified by R.N. 10:39:14 Insertion/operative site no bleeding no hematoma. 10:39:17 Post-op/insertion site Right Femoral artery dressed using a 4 x 4 and Tegaderm. 10:39:20 Post right femoral artery:stable, soft, clean and dry 10:39:22 Post Procedure Pulses reassessed and unchanged 10:39:25 Post-procedure physical assessment completed. ASA score P 2 - A patient with mild systemic disease as per Alpesh Washington MD. 10:39:35 Post procedure rhythm: unchanged. 10:39:37 Estimated blood loss: 5 ml 10:39:38 Post procedure instruction explained to patient.Patient verbalizes understanding. 10:39:39 Patient needs reinforcement of post procedure teaching. 10:40:32 Procedure and supply charges have been captured, reviewed, submitted and are correct. 10:40:34 Procedure Complication : No complications 10:40:37 Vital chart was stopped 10:40:37 See physician's report for complete and final results. 10:40:40 Report given to Pre/Post Procedure Room. 10:40:42 Patient transfered to Pre/Post Procedure Room with Stretcher. 10:40:44 Procedure ended. 10:40:44 Full Disclosure recording stopped 10:40:49 End room use (Document Last) Device Usage Item Name Manufacture Quantity Catalog Hospital Part Current Minimal Lot# / Number Charge Number Stock Stock Serial# Code ACIST Acist 1 79812 450811 311322 687895 20 Syringe Medical (13390) Systems Inc Bag Decanter Microtek 1 2001S 837730 53388 615748 5 () Medical Inc. Medline Cath Cardinal 1 [id number] 260340 33664 631200 5 Pack Health ([id number]) ACIST Hand Acist 1 84433 929598 078803 369585 5 Control Medical (24529) Systems Inc ACIST Acist 1 01468 243251 764991 489102 5 Manifold Medical (51959) Systems Inc Tegaderm 4 x 3M 1 1626W 871151 523168 191702 5 4 (1626W) SHEATH 5FR Terumo 1 [id number] 229598 037736 903884 40 Compton (CDB282) DIAGNOSTIC St Tristen 1 244865 858992 163484 133223 30 WIRE .035 260cm J wire (711812) DIAGNOSTIC Cardinal 1 [id number] 290009 56761 589813 30 Multipack Health 5Fr catheter set (ML7426) PERCUTANEOUS [facility] 1 X42279 245894 751840 5 ENTRY 19GA needle MULTIPACK Cardinal 1 827929 5 Pigtail 5 Fr Health catheter MULTIPACK JL Cardinal 1 [id number] 5 4.0 5Fr Health catheter MULTIPACK Cardinal 1 297784 5 3DRC 5Fr Health catheter EXOSEAL 5Fr Cardinal 1 EX500 343578 144536 769693 10 (EX500) Health Signature Audit [place] Stage Time Signature Unsigned Intra-Procedure 06/30/2017 Bharat Odom 10:44:18 AM RT(R) Signatures Monitor : Bharat Odom RT Signature : Date : Time : [place] [address] [place] [address]
[~2017-06-30 08:00] MED LIST changes: -LYRICA50 MG PO; -TOPROL XL50 MG PO
[2017-06-30] MEDS ORDERED: TOPROL XL50 MG PO (08:49)
[2017-06-30 08:50] LABS: BASOPHILS 0.4 % (0-2); EOSINOPHILS 1.7 % (0-7); HEMATOCRIT 39.7 % (36.0-48.0); HEMOGLOBIN 13.2 g/dL (12-16); IMMATURE GRANULOCYTES 0.1 % (0-5); LYMPHOCYTES 23.7 % (15-50); MCHC 33.2 g/dL (31.0-37.0); MCV 93.2 fL (80.0-100.0); MONOCYTES 6.7 % (2-11); NEUTROPHILS 67.4 % (40-80); PLATELET COUNT 240 10x3/uL (130-400); RBC 4.26 10x6/uL (4.00-5.40); RDW 14.6 % (11.5-14.5); WBC 7.8 10x3/uL (4.8-10.8)
[2017-06-30] MEDS ORDERED: LYRICA50 MG PO (08:50)
[2017-06-30 08:58] LABS: ANION GAP 13.8 mmol/L (8-16); CALCIUM 9.3 mg/dL (8.5-10.1); CARBON DIOXIDE 25.5 mmol/L (21.0-32.0); POTASSIUM - SERUM 4.3 mmol/L (3.5-5.1)
[2017-06-30 09:08] VITALS: BP 144/93; Ht 165.1 cm; Wt 62.3 kg
== END 2017-06-30 13:10 | disposition home or self-care (01) ==
LOC: D.CATH 08:00
PROVIDERS: Internal Medicine Interventional Cardiology
DX: I25.119 Atherosclerotic heart disease of native coronary artery with unspecified angina pectoris (principal); F17.210 Nicotine dependence, cigarettes, uncomplicated; R06.09 Other forms of dyspnea; I10 Essential (primary) hypertension; Z01.812 Encounter for preprocedural laboratory examination

== ENCOUNTER → 2018-09-20 12:30 | Outpatient (CLI) | payer MEDICAID | END | disposition home or self-care (01) | LOC: D.HCCARDIO 12:30 | DX: R06.02 Shortness of breath (principal) ==

== ENCOUNTER → 2018-09-20 16:39 | Outpatient (CLI) | payer MEDICAID | END | disposition home or self-care (01) | LOC: D.LABREF 16:39 | DX: I25.10 Atherosclerotic heart disease of native coronary artery without angina pectoris (principal); R60.9 Edema, unspecified ==

== ENCOUNTER 2018-11-05 08:45 | Outpatient (CLI) | payer MEDICAID ==
[~2018-11-05] VITALS: Ht 165.1 cm; Wt 57.7 kg
--- NOTE | ~2018-11-05 | HEMODYNAMI ---
PATIENT:LALI LIU MEDICAL RECORD: [id number] : 64 LOCATION:[facility] ADMISSION DATE: 11/05/18 Generatedon:11/05/201810:57 Patient name: LALI LIU Patient #: [id number] SSN: : 1960 Date of study: 11/05/2018 Page: Of Hemodynamic Procedure Report Patient Data Patient Demographics Procedure consent was obtained First Name: LALI Gender: Female Last Name: ALEXA : 1960 Patient #: [id number] Age: 58 year(s) Race: Additional ID: [id number] Contact details [address]: [address] [place] [address] COURT State: [place] City: [facility] Zip code: [address] Past Medical History Allergies Allergen Reaction Date Comments Reported Penicillins 08/28/2015 Other allergy 08/28/2015 NAPROXEN Penicillins 10/14/2016 Other allergy 10/14/2016 NAPROXEN Other allergy 06/30/2017 PCN, Naproxen Other allergy 11/05/2018 PCN, Naproxen Admission Admission Data Admission Date: 11/05/2018 Admission Time: 8:45 Lab Results Lab Result Date: 11/05/2018 Lab Result Time: 9:25 Biochemistry Name Units Result Min Max BUN mg/dl 17 --(---*)-- 7 18 Creatinine mg/dl 1 --(--*-)-- 0.6 1.3 CBC Name Units Result Min Max Hematocrit % 34.7 *-(----)-- 42 54 Hemoglobin g/dl 11.1 *-(----)-- 13.5 17.5 Procedure Procedure Types Cath Procedure Diagnostic Procedure LHC LHC w/Coronaries w/Grafts Procedure Description Procedure Date Procedure Date: 11/05/2018 Procedure Start Time: 10:42 Procedure End Time: 10:54 Procedure Staff Name Function Bharat Odom RT Monitor Libby Fernandez RT Scrub Naila Faith RN Nurse Alpesh Washington MD Performing Physician Procedure Data Cath Procedure Fluoroscopy Diagnostic fluoroscopy Total fluoroscopy Time: 3.3 time: 3.3 min min Diagnostic fluoroscopy Total fluoroscopy dose: 387 dose: 387 mGy mGy Contrast Material Contrast Material Type Amount (ml) Isovue 370 48 Entry Location Entry Primary Successful Side Size Upsize Upsize Entry Closure Succes sful Closure Location (Fr) 1 (Fr) 2 (Fr) Remarks Device Remarks Femoral Right 5 Fr Exoseal artery Estimated blood loss: 5 ml Diagnostic catheters Device Type Used For End Catheter Placement MULTIPACK Pigtail 5 Fr Procedure catheter MULTIPACK JL 4.0 5Fr Procedure catheter MULTIPACK 3DRC 5Fr Procedure catheter Procedure Complications No complications Procedure Medications Medication Administration Route Dosage Oxygen etCO2 Nasal cannula 2 l/min Lidocaine 2% added to field 20 Heparin Flush Bag added to field 2 bags (1000units/500ml NS) 0.9% NaCl I.V. 100 ml/hr Versed I.V. 2 mg Fentanyl I.V. 100 mcg Versed I.V. 1 mg Fentanyl I.V. 50 mcg Fentanyl I.V. 50 mcg Hemodynamics Rest HGB: 11.1 (g/dl) Heart Rate: 55 (bpm) Pressure Samples Time Site Value (mmHg) Purpose Heart Use Rate(bpm) 10:46 LV 97/-4,30 Snapshot 50 10:47 AO 81/52(66) Pullback 53 10:47 LV 83/2,12 Pullback 53 Gradients Valve Time Site 1 Site 2 Mean SEP/DFP Peak To Heart Use (mmHg) (sec/min) Peak Rate (mmHg) (bpm) Aortic 10:47 LV AO 5 10 2 53 83/2,12 81/52(66) Calculations Valve P-P Mean Valve Index Valve Source Name Gradient Area Flow (cm2) Aortic 2 5 2 5 Snapshots Pre Cath Intra NCS Post Cath Vital Signs Time Heart Resp SPO2 etCO2 NIBP Rhythm Pain Sedation Rate (ipm) (%) (mmHg) (mmHg) Status Level (bpm) 10:32:55 56 26 97 27.5 127/78(89) SB 0 (11) 10(A) , No pain 10:37:07 54 15 99 15.6 109/69(92) SB 0 (11) 10(A) , No pain 10:41:15 53 18 99 20.8 103/61(78) NSR 0 (11) 10(A) , No pain 10:45:20 53 12 98 39.4 98/58(75) NSR 0 (11) 9(A) , No pain 10:49:28 55 10 95 17.1 84/46(60) NSR 0 (11) 9(A) , No pain 10:53:30 56 13 94 20 77/48(60) NSR 0 (11) 10(A) , No pain 10:55:51 56 18 90 23.8 82/50(60) NSR 0 (11) 10(A) , No pain Medications Time Medication Route Dose Verified Delivered Reason Notes Eff ectiveness by by 10:32:18 Oxygen etCO2 2 Alpesh Buffie used for Nasal l/min Padmini Faith RN procedure cannula 10:32:55 Lidocaine 2% added 20ml Alpesh Alpesh for local to vial Padmini Washington MD anesthetic field 10:33:01 Heparin Flush added 2 Alpesh Alpesh used for Bag to bags Padmini Washington MD procedure (1000units/500ml field NS) 10:33:14 0.9% NaCl I.V. 100 Alpesh Buffie Per ml/hr Padmini Faith RN physician 10:42:38 Versed I.V. 2 mg Alpesh Buffie for Padmini Faith RN sedation 10:42:45 Fentanyl I.V. 100 Alpesh Buffie for mcg Padmini Faith RN sedation 10:45:40 Versed I.V. 1 mg Alpesh Buffie for Padmini Faith RN sedation 10:45:44 Fentanyl I.V. 50 Alpesh Buffie for mcg Padmini Faith RN sedation 10:50:57 Fentanyl I.V. 50 Alpesh Buffie for joseph Faith RN sedation Procedure Log Time Note 10:13:24 Signed procedure consent form obtained from patient. 10:13:26 Diagnostic Cath status Elective 10:13:27 Bharat Odom RT(R) sent for patient. Start room use. 10:24:19 Time tracking: Regular hours (M-F 7:00 - 5:00) 10:24:27 Plan of Care:Hemodynamics will remain stable., Cardiac rhythm will remain stable., Comfort level will be maintained., Respiratory function will remain adequate., Patient/ family verbilizes understanding of procedure., Procedure tolerated without complication., Recovers from procedure without complications.. 10:24:32 Patient received from Pre/Post Procedure Room to CCL 1 Alert and oriented. Tansferred to table in Supine position. 10:24:33 Warm blankets applied, and rach hugger turned on for patient comfort. 10:24:33 Correct patient and procedure confirmed by team. 10:24:34 ECG and BP/O2 sat monitors applied to patient. 10:31:48 Vital chart was started 10:32:18 Oxygen 2 l/min etCO2 Nasal cannula was administered by Naila Faith RN; used for procedure; 10:32:55 Lidocaine 2% 20ml vial added to field was administered by Alpesh Washington MD; for local anesthetic; 10:33:01 Heparin Flush Bag (1000units/500ml NS) 2 bags added to field was administered by Alpesh Washington MD; used for procedure; 10:33:14 0.9% NaCl 100 ml/hr I.V. was administered by Naila Faith RN; Per physician; 10:35:25 Baseline sample Acquired. 10:35:31 Rhythm: sinus rhythm 10:36:13 Full Disclosure recording started 10:36:30 H&P Date Dictated: 10/16/2018 Within 30 days and on chart., H&P Addendum completed by physician on day of procedure. (MUST COMPLETE FOR ALL OUTPATIENTS). 10:36:37 Pre-procedure instructions explained to patient. 10:36:37 Pre-op teaching completed and patient verbalized understanding. 10:36:47 Family in waiting room. 10:36:49 Patient NPO since Midnight. 10:39:50 Patient allergic to Other allergyPCN, Naproxen 10:39:52 Is patient on blood thinner?Yes 10:39:55 ACC The patient was administered the following blood thiners within the last 24 hours: ACCPlavix 10:39:57 Patient diabetic? No. 10:40:01 Previous problem with sedation/anesthesia? No ? 10:40:02 Snore? Yes 10:40:03 Sleep apnea? No 10:40:03 Deviated septum? No 10:40:04 Opens mouth fully? Yes 10:40:05 Sticks out tongue? Yes 10:40:12 Airway obstruction? Yes COPD 10:40:15 Dentures? No ? 10:40:18 Pre procedure: right dorsailis pedis pulse 2+ Normal; easily identifiable; not easily obliterated 10:40:20 Patient pain scale 0/10 ?. 10:40:23 IV patent on arrival in left hand with 0.9% NaCl at [facility]. 10:40:24 Zero performed for pressure channel P1 10:40:27 Zero performed for pressure channel P1 10:41:06 Lab Result : BUN 17 mg/dl 10:41:07 Lab Result : Hemoglobin 11.1 g/dl 10:41:07 Lab Result : Creatinine 1 mg/dl 10:41:07 Lab Result : Hematocrit 34.7 % 10:41:09 Lab results completed and on chart. 10:41:15 Right groin area was prepped with chlora-prep and draped in sterile fashion 10:41:16 Alarms reviewed by R. N. 10:41:16 Sharps counted by scrub and verified by R.N. 10:41:18 Use device set Femoral Dx 10:41:19 ACIST Syringe ([id number]) opened to sterile field. 10:41:20 Bag Decanter (2002S) opened to sterile field. 10:41:20 Medline Cath Pack ([id number]) opened to sterile field. 10:41:21 ACIST Hand Control (63729) opened to sterile field. 10:41:22 ACIST Manifold (71364) opened to sterile field. 10:41:23 DIAGNOSTIC Multipack 5Fr catheter set ([id number]) opened to sterile field. 10:41:23 Tegaderm 4 x 4 (1626W) opened to sterile field. 10:41:25 SHEATH 5FR [place] ([id number]) opened to sterile field. 10:41:26 EMERALD Guide Wire (842-994) opened to sterile field. 10:41:32 Physician arrived 10:41:32 --------ALL STOP TIME OUT------ 10:41:33 Final Timeout: patient, procedure, and site verified with staff and physician. All members of the team are in agreement. 10:41:34 Right groin site verified by team. 10:41:36 Fire Safety Assessment: A--An alcohol-based skin anteseptic being used preoperatively., C--Open oxygen or nitrous oxide is being used., D--An ESU, laser, or fiber-optic light is being used. 10:41:39 Physical assessment completed. ASA score P 2 - A patient with mild systemic disease as per Alpesh Washington MD. 10:41:42 Maximum allowable contrast does (3.7 X eGFR X 0.75)169 ml. 10:41:51 2) 60-89 Mildly reduced kidney function, and other findings (as for stage 1) point to kidney disease. 10:41:54 Sedation plan: IV Moderate Sedation Medication:Versed, Fentanyl 10:41:59 Procedure started. 10:42:05 Local anesthetic to right femoral artery with Lidocaine 2% by Alpesh Washington MD.INITIAL ACCESS ONLY 10:42:38 Versed 2 mg I.V. was administered by Naila Faith RN; for sedation; 10:42:44 A 5 Fr sheath was inserted into the Right Femoral artery 10:42:45 Fentanyl 100 mcg I.V. was administered by Naila Faith RN; for sedation; 10:42:59 GLIDE WIRE Super Stiff Angled 260cm ([id number]) opened to sterile field. 10:45:40 Versed 1 mg I.V. was administered by Naila Faith RN; for sedation; 10:45:44 Fentanyl 50 mcg I.V. was administered by Naila Faith RN; for sedation; 10:46:36 A MULTIPACK Pigtail 5 Fr catheter was advanced over the wire and used for Procedure. 10:47:11 LV gram done using NAVARRO 10:47:13 Injector settings: Ml/sec: 10, Volume: 20, 10:47:27 LV hemodynamics recorded. 10:47:30 EF : 40 % 10:47:36 Catheter exchanged over wire. 10:47:40 A MULTIPACK JL 4.0 5Fr catheter was advanced over the wire and used for Procedure. 10:48:18 LMCA occluded. 10:49:14 Catheter exchanged over wire. 10:49:25 A MULTIPACK 3DRC 5Fr catheter was advanced over the wire and used for Procedure. 10:49:33 GLIDE wire advanced. 10:50:37 SORIA to LAD angiography performed. 10:50:57 Fentanyl 50 mcg I.V. was administered by Naila Faith RN; for sedation; 10:52:22 RCA occluded. 10:52:33 SVG to Circ occluded. 10:52:36 Catheter removed. 10:52:53 EXOSEAL 5Fr (EX500) opened to sterile field. 10:53:20 Sheath removed intact; hemostasis achieved with Exoseal to the Right Femoral artery. 10:53:21 Procedure ended.(Physican Out) 10:53:28 Fluoroscopy time 03.30 minutes. 10:53:32 Flurop Dose total: 387 10:53:32 Fluoroscopy dose: 387 mGy 10:53:35 Contrast amount:Isovue 370 48ml. 10:53:39 Sharps counted by scrub and verified by R.N. 10:53:46 Insertion/operative site no bleeding no hematoma. 10:53:49 Post-op/insertion site Right Femoral artery dressed using a 4 x 4 and Tegaderm. 10:53:52 Post right femoral artery:stable, soft, clean and dry 10:53:53 Post Procedure Pulses reassessed and unchanged 10:53:56 Post-procedure physical assessment completed. ASA score P 2 - A patient with mild systemic disease as per Alpesh Washington MD. 10:53:58 Post procedure rhythm: unchanged. 10:53:59 Estimated blood loss: 5 ml 10:54:00 Post procedure instruction explained to patient.Patient verbalizes understanding. 10:54:00 Patient needs reinforcement of post procedure teaching. 10:54:24 Procedure and supply charges have been captured, reviewed, submitted and are correct. 10:54:26 Procedure Complication : No complications 10:54:27 Vital chart was stopped 10:54:28 See physician's report for complete and final results. 10:54:29 Report given to Pre/Post Procedure Room. 10:54:31 Patient transfered to Pre/Post Procedure Room with Stretcher. 10:54:33 Procedure ended. 10:54:33 Full Disclosure recording stopped 10:54:36 End room use (Document Last) Device Usage Item Name Manufacture Quantity Catalog Hospital Part Current Minimal L ot# / Number Charge Number Stock Stock Serial# Code ACIST Acist 1 69073 [id number] 195071 [id number] 20 Syringe Medical (04951) Systems Inc Bag Microtek 1 345889 11876 919897 5 Decanter Medical Inc. () Medline Medline 1 [id number] 909599 60147 322086 5 Cath Pack ([id number]) ACIST Hand Acist 1 92766 114069 500567 413810 5 Control Medical (86004) Systems Inc ACIST Acist 1 89812 568083 730808 674187 5 Manifold Medical (26168) Systems Inc DIAGNOSTIC Cardinal 1 PE7725 414038 23894 347426 30 Multipack Health 5Fr catheter set (RI3112) Tegaderm 4 3M 1 1626W 894332 739249 341467 5 x 4 (1626W) SHEATH 5FR Terumo 1 [id number] 436101 282440 069884 5 [place] (HZQ357) EMERALD Cardinal 1 502-455 047309 113297 613944 5 Guide Wire Health (502-455) GLIDE WIRE Terumo 1 HA4511 903943 230334 384786 5 Super Stiff Angled 260cm (KG2883) MULTIPACK Cardinal 1 129509 5 Pigtail 5 Health Fr catheter MULTIPACK Cardinal 1 934144 5 JL 4.0 5Fr Health catheter MULTIPACK Cardinal 1 914892 5 3DRC 5Fr Health catheter EXOSEAL 5Fr Cardinal 1 EX500 032314 503235 032294 10 (EX500) Health Signature Audit [place] Stage Time Signature Unsigned Intra-Procedure 11/05/2018 Bharat Odom 10:56:58 AM RT(R) Signatures Monitor : Bharat Odom RT Signature : Date : Time : Nurse : Naila Faith RN Signature : Date : Time : Performing Physician : Signature : Alpesh Washington MD Date : Time : [facility] [address] [place] [address]
[~2018-11-05 08:45] MED LIST changes: +LYRICA50 MG PO; +TOPROL XL50 MG PO
[2018-11-05] MEDS ORDERED: TENORMIN50 MG PO (09:20)
[2018-11-05 09:32] VITALS: BP 137/86; Ht 165.1 cm; Wt 57.7 kg
[2018-11-05 09:48] LABS: BASOPHILS 0.4 % (0-2); EOSINOPHILS 1.5 % (0-7); HEMATOCRIT 34.7 % (36.0-48.0); HEMOGLOBIN 11.1 g/dL (12-16); IMMATURE GRANULOCYTES 0.1 % (0-5); LYMPHOCYTES 17.2 % (15-50); MCH 27.7 pg (26.0-34.0); MCV 86.5 fL (80.0-100.0); MONOCYTES 7.3 % (2-11); NEUTROPHILS 73.5 % (40-80); PLATELET COUNT 255 10x3/uL (130-400); RBC 4.01 10x6/uL (4.00-5.40); RDW 15.6 % (11.5-14.5); WBC 7.5 10x3/uL (4.8-10.8)
[2018-11-05 09:51] LABS: ANION GAP 10.8 mmol/L (8-16); CALCIUM 8.8 mg/dL (8.5-10.1); CARBON DIOXIDE 26.4 mmol/L (21.0-32.0); POTASSIUM - SERUM 4.2 mmol/L (3.5-5.1)
--- NOTE | 2018-11-05 11:05 | NUR ---
PT RECEIVED VIA STRETCHER FROM SHUTTLE OPERATOR FOR RECOVERY. PT SLEEPING, BUT VERBALLY AROUSABLE. R GROIN W 5FR EXOCELE, DRESSING CDI NO BLEEDING OR HEMATOMA NOTED. LEG PINK AND WARM, PEDAL PULSES PALPABLE. HR SINUS PABLO RATE 53, BP 77/44, O2 SAT 98 ON 2L/NC. SHUTTLE OPERATOR RN STATES BP BEEN RUNNING LOW DURING PROCEDURE. IV PATENT PER GRAVITY, FLUIDS OPENED WIDE. PT INSTRUCTED TO KEEP HEAD ON PILLOW AND LEG STRAIGHT, SHE VERBALIZED UNDERSTANDING. CALL LIGHT IN REACH.
--- NOTE | 2018-11-05 11:34 | NUR ---
PT STILL SLEEPING, BP 88/50, HR 53. GROIN SOFT, NO BLEEDING OR HEMATOMA NOTED, DRESSING CDI. LEG PINK AND WARM, PEDAL PULSES PALPABLE. 92 SAT 100 ON 2L. CALL LIGHT IN REACH.
--- NOTE | 2018-11-05 12:00 | NUR ---
GROIN SOFT, DRESSING CDI NO BLEEDING OR SWELLING NOTED. VSS, BP 106/64 AFTER FLUID BOLUS. HOB ELEVATED SLIGHTLY, SANDWICH TRAY AND DRINK SERVED. PT DENIES PAIN OR DISCOMFORT. CALL LIGHT IN REACH. O2 DECREASED TO 2L/NC.
--- NOTE | 2018-11-05 12:30 | NUR ---
PT SITTING UP VISITING W FAMILY, TOLERATED FOOD AND DRINK W/O NAUSEA. DENIES PAIN OR DISCOMFORT. GROIN REMAINS SOFT, DRESSING CDI NO BLEEDING OR SWELLING NOTED. COFFEE GIVEN PER REQUEST. CALL LIGHT IN REACH
--- NOTE | 2018-11-05 12:50 | NUR ---
DISCHARGE INSTRUCTIONS REVIEWED W PT AND FAMILY, ALL VERBALIZED UNDERSTANDING. IV REMOVED W CATH INTACT. O2 AND MONITORS REMOVED AND PT UP TO DRESS FOR DISCHARGE.
--- NOTE | 2018-11-05 13:05 | NUR ---
PT TO BR VIA WC, VOIDING W/O DIFFICULITY. PT DISCHARGED VIA WC TO PRIVATE VEHICLE WITH ALL BELONGINGS
--- NOTE | 2018-11-05 18:39 | OP ---
PATIENT NAME: LALI LIU MEDICAL RECORD: [id number] :64 LOCATION:D.CAT ADMISSION DATE: SURGEON: LUCÍA MCALLISTER MD DATE OF OPERATION: 11/05/2018 PROCEDURES: 1. Left heart catheterization. 2. Selective coronary angiography. 3. Left ventriculogram. 4. Vein graft angiography. 5. SORIA angiography. INDICATION: Evaluation of coronary anatomy for mitral valve replacement/repair surgery. PROCEDURE IN DETAIL: After informed consent was obtained and after a detailed description of risks, benefits as well as alternative therapies, the patient elected to proceed with angiogram and heart catheterization. The right femoral area was prepped and draped in normal sterile fashion. Right femoral artery was cannulated via modified Seldinger technique with placement of 5-Surinamese sheath. All catheters exchanged through this sheath. FINDINGS: The left ventriculogram was performed in standard 30-degree NAVARRO view, reveals global hypokinesis, ejection fraction 40%. SELECTIVE CORONARY ANGIOGRAPHY: 1. Left main is closed. 2. Right coronary artery is closed. 3. Vein graft to the circumflex is closed. 4. Vein graft to the RCA is closed. 5. SORIA to the LAD is patent. This feeds the entire LAD, circumflex, and RCA system. The RCA is small and diffusely diseased, questionable if this can be regrafted. The circumflex appears to be small, diffusely diseased, not amenable to regrafting. OVERALL IMPRESSION: Wide patency of the SORIA to the LAD. This is her only coronary that is open at this time. TRANSINT:[id number] Voice Confirmation ID: [id number] DOCUMENT ID: [id number] LUCÍA MCALLISTER MD at 1839 CC: [id number] DICTATION DATE: 11/05/18 1058 ARMORED CAR GUARD AND DRIVER: 11/05/18 1118 DEP CLI 11/05/18 [place] [id number] [place] [id number]
== END 2018-11-05 13:05 | disposition home or self-care (01) ==
LOC: D.CATH 08:45
PROVIDERS: ATTEND Internal Medicine Interventional Cardiology
DX: I25.10 Atherosclerotic heart disease of native coronary artery without angina pectoris (principal); I25.810 Atherosclerosis of coronary artery bypass graft(s) without angina pectoris; I34.9 Nonrheumatic mitral valve disorder, unspecified; R06.02 Shortness of breath; Z01.812 Encounter for preprocedural laboratory examination

== ENCOUNTER → 2019-02-12 11:01 | Outpatient (CLI) | payer MEDICAID ==
[2018-11-05 09:32] VITALS: BMI 21.1
== END | disposition home or self-care (01) ==
LOC: D.CT 11:01
PROVIDERS: ATTEND Internal Medicine Pulmonary Disease
DX: J44.9 Chronic obstructive pulmonary disease, unspecified (principal)